=== PATIENT | male | born 1990 | race Hispanic/Latino ===

== ENCOUNTER 2016-09-22 15:39 | Emergency (ER) | payer BC ==
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
[2016-09-22] MEDS ORDERED: IBUPROFEN 600 MG TABLET PO ONE (16:15)
[2016-09-22] MEDS ORDERED: ACETAMINOPHEN 325 MG TABLET PO ONE (16:15)
== END 2016-09-22 16:14 | disposition home or self-care (01) ==
LOC: ER 15:39
DX: S70.01XA Contusion of right hip, initial encounter (principal); S70.211A Abrasion, right hip, initial encounter; S80.211A Abrasion, right knee, initial encounter; V86.59XA Driver of other special all-terrain or other off-road motor vehicle injured in nontraffic accident, initial encounter; Y92.89 Other specified places as the place of occurrence of the external cause; Z72.0 Tobacco use
CPT/HCPCS: 99283